=== PATIENT | female | born 1990 | race Caucasian/White ===

== ENCOUNTER 2017-06-15 12:07 | Emergency (ER) | payer SELFPAY ==
[2017-06-15 12:36] LABS: Bilirubin Negative (Negative); Blood, Urine Negative (Negative); Glucose, Urine (Dipstick) Negative (Negative); Ketone, Urine Negative (Negative); Nitrite Negative (Negative); Protein, Urine (Dipstick) Negative (Neg-Trace); Urobilinogen 0.2 mg/dL (0.2-1.0)
[2017-06-15 12:38] LABS: Bacteria/HPF 4+ HPF (None Seen); Hyaline Casts/LPF 0-3 HYALINE CAST LPF (0-3 Hyaline); RBC/HPF 0-3 HPF (0-3)
[2017-06-15 12:43] LABS: Hematocrit 32.7 % (36.0-47.0); Mean Platelet Volume 8.5 fL (7.4-10.4); Red Blood Cell (RBC) Count 4.51 mill/uL (4.20-5.40); White Blood Cell (WBC) Count 5.3 thou/uL (4.8-10.8)
[2017-06-15 12:57] LABS: ALT (SGPT) Less than 7 U/L (8-55); AST (SGOT) 18 U/L (5-34); Alkaline Phosphatase 84 U/L (40-150); Anion Gap 14 mmol/L (10-20); BUN (Urea Nitrogen) 10 mg/dL (7.0-18.7); Bilirubin, Total 0.2 mg/dL (0.2-1.2); Calc. Creatinine Clearance 0 mL/min (70-130); Calcium 9.1 mg/dL (7.8-10.44); Carbon Dioxide 23 mmol/L (22-29); Chloride 105 mmol/L (98-107); Estimated GFR-MDRD 89; Globulin 3.3 g/dL (2.4-3.5); Lipase 8 U/L (8-78); Protein, Total 7.5 g/dL (6.0-8.3)
[2017-06-15 13:04] LABS: Hypochromia SLIGHT = 6-15 cells (100X) (0-5/hpf)
[2017-06-15 13:16] LABS: Anisocytosis SLIGHT = 6-15 cells (100X) (0-5/hpf); Band 6 % (5-11); Microcytosis SLIGHT = 6-15 cells (100X) (0-5/hpf); Polychromasia SLIGHT = 2-3 cells (100X) (0-2/hpf); Reactive Lymphocytes 1 % (0-10)
[2017-06-15 13:17] LABS: Elliptocytes SLIGHT = 2-5 cells (100X) (0-1/hpf); Ovalocytes SLIGHT = 2-5 cells (100X) (0-1/hpf); Target Cells SLIGHT = 2-5 cells (100X) (0-1/hpf)
[2017-06-15] MEDS ORDERED: Ondansetron HCl/PF 4 MG/2 ML Vial ONE (13:41)
[2017-06-15] MEDS ORDERED: Morphine 4 MG/ML VIAL ONE (13:41)
[2017-06-15] MEDS ORDERED: HYDROmorphone 0.5 MG/0.5 ML SYRINGE ONE ×2 (13:55→16:20)
[2017-06-15] MEDS ORDERED: Promethazine HCl 12.5 MG SUPP ONE (15:02)
[2017-06-15] MEDS ORDERED: Promethazine HCl 25 MG/ML VIAL ONE (15:03)
--- NOTE | 2017-06-15 15:43 | ULT ---
PELVIC ULTRASOUND: Technique: Transabdominal and endovaginal ultrasound of the pelvis performed. History: Right pelvic pain. FINDINGS: There is history given by the technologist of partial oophorectomy. The uterus has a normal appearance. Uterus measures 7.5 x 3.8 x 4.2 cm. Endometrial stripe is within normal range measured at 4-6 mm. The ovaries are identified and appear unremarkable. There are follicles seen bilaterally. Color doppl er with spectral analysis demonstrates blood flow to both ovaries. IMPRESSION: Unremarkable pelvic ultrasound. POS: [facility]
[2017-06-15] MEDS ORDERED: Azithromycin 250 MG TAB ONE (16:20)
[2017-06-15] MEDS ORDERED: Doxycycline 100 MG CAP PO SCH (16:30)
== END 2017-06-15 16:55 | disposition home or self-care (01) ==
LOC: ERS 12:07
DX: N73.9 Female pelvic inflammatory disease, unspecified (principal); N83.209 Unspecified ovarian cyst, unspecified side; N39.0 Urinary tract infection, site not specified; F17.210 Nicotine dependence, cigarettes, uncomplicated
CPT/HCPCS: 76856; 80053; 81003; 81015; 81025; 83690; 84703; 85025; 87077; 87086; 87186; 87480; 87491; 87510; 87591; 87660; 96361; 96365; 96375; 96376; J0744; J1170; J2270; J2405; J2550

== ENCOUNTER 2017-06-17 17:50 | Emergency (ER) | payer SELFPAY ==
[2017-06-17 19:03] LABS: #Basophils 0.1 thou/uL (0.0-0.2); #Eosinphils 0.4 thou/uL (0.0-0.7); #Lymphocytes 2.3 thou/uL (1.20-3.40); #Monocytes 0.4 thou/uL (0.11-0.59); #Neutrophils 2.3 thou/uL (1.40-6.50); %Basophils 1.9 % (0.0-1.0); %Eosinophils 7.4 % (0.0-10.0); %Lymphocytes 41.7 % (21.0-51.0); %Monocytes 6.9 % (0.0-10.0); Hematocrit 31.7 % (36.0-47.0); Mean Platelet Volume 8.3 fL (7.4-10.4); Red Blood Cell (RBC) Count 4.41 mill/uL (4.20-5.40); White Blood Cell (WBC) Count 5.5 thou/uL (4.8-10.8)
[2017-06-17 19:27] LABS: ALT (SGPT) Less than 7 U/L (8-55); AST (SGOT) 17 U/L (5-34); Alkaline Phosphatase 89 U/L (40-150); Anion Gap 11 mmol/L (10-20); BUN (Urea Nitrogen) 12 mg/dL (7.0-18.7); Bilirubin, Total 0.2 mg/dL (0.2-1.2); Calc. Creatinine Clearance 0 mL/min (70-130); Calcium 9.2 mg/dL (7.8-10.44); Carbon Dioxide 25 mmol/L (22-29); Chloride 104 mmol/L (98-107); Estimated GFR-MDRD 82; Globulin 3.1 g/dL (2.4-3.5); Protein, Total 7.5 g/dL (6.0-8.3)
[2017-06-17 19:46] LABS: Bilirubin Negative (Negative); Blood, Urine Negative (Negative); Glucose, Urine (Dipstick) Negative (Negative); Ketone, Urine Negative (Negative); Nitrite Negative (Negative); Protein, Urine (Dipstick) Negative (Neg-Trace); Urobilinogen 0.2 mg/dL (0.2-1.0)
[2017-06-17 19:49] LABS: Hyaline Casts/LPF 0-3 HYALINE CAST LPF (0-3 Hyaline)
[2017-06-17 19:57] LABS: RBC/HPF 0-3 HPF (0-3); Yeast-All Forms 1+ HPF (None Seen)
[2017-06-17 19:58] LABS: Bacteria/HPF Rare-Few HPF (None Seen)
== END 2017-06-17 22:20 | disposition home or self-care (01) ==
LOC: ERS 17:50
DX: N76.0 Acute vaginitis (principal); B96.89 Other specified bacterial agents as the cause of diseases classified elsewhere; N30.90 Cystitis, unspecified without hematuria; F43.10 Post-traumatic stress disorder, unspecified; F17.210 Nicotine dependence, cigarettes, uncomplicated; Z79.899 Other long term (current) drug therapy
CPT/HCPCS: 36415; 80053; 81003; 81015; 85025; 99406

== ENCOUNTER 2017-07-19 20:53 | Emergency (ER) | payer OTHER, SELFPAY ==
[2017-07-19] MEDS ORDERED: diphenhydrAMINE 50 MG/ML VIAL ONE (21:59)
[2017-07-19] MEDS ORDERED: diphenhydrAMINE 25 MG CAP ONE (22:31)
== END 2017-07-19 22:41 | disposition home or self-care (01) ==
LOC: ERS 20:53
DX: R10.31 Right lower quadrant pain (principal); R51 Headache; F43.10 Post-traumatic stress disorder, unspecified; F17.210 Nicotine dependence, cigarettes, uncomplicated; Z79.899 Other long term (current) drug therapy; Z71.6 Tobacco abuse counseling
CPT/HCPCS: 96360; 99406; J1200

== ENCOUNTER 2017-07-21 13:00 | Observation (INO) | payer SELFPAY ==
[2017-07-21] MEDS ORDERED: Promethazine HCl 25 MG/ML VIAL ONE (15:14)
[2017-07-21] MEDS ORDERED: Dihydroergotamine Mesylate 1 MG/ML AMP SLOW IVP SCH ×2 (15:15→17:45)
[2017-07-21] MEDS ORDERED: Sodium Chloride 0.9% 1,000 ML IV SCH (17:03)
[2017-07-21] MEDS ORDERED: Bisacodyl 5 MG TAB PO PRN (17:03)
[2017-07-21] MEDS ORDERED: Lorazepam 2 MG/ML VIAL SLOW IVP PRN (17:03)
[2017-07-21] MEDS ORDERED: diphenhydrAMINE 50 MG/ML VIAL IVP PRN (17:03)
[2017-07-21] MEDS ORDERED: Promethazine HCl 25 MG/ML VIAL IM PRN (17:03)
--- NOTE | 2017-07-21 19:32 | HP ---
PRIMARY CARE PHYSICIAN: Dr. Matt. CHIEF COMPLAINT: Migraine. HISTORY OF PRESENT ILLNESS: This is a 27-year-old white female who has been seen multiple times over the last couple of months in the emergency room for abdominal pain requesting narcotic medications. She has not been prescribed any because she was found to have many different prescriptions prescribe d by multiple different providers over the last month prior to first coming here. The patient was se en 2 days ago for continued pain in her right lower quadrant, thought to be due to her chronic ovaria n cyst pain. She was denied narcotics at that time. She did state at that time that she felt a migr carmen coming on and that she needed a narcotic medication to prevent this from happening along with DH E. She was offered Benadryl, Reglan IV and she refuses medication and left. Patient returns today, reporting continued migraine headaches since the last 2 days along with persistent nausea and vomitin g of all fluids and food. She reports that the pain starts as a pressure pain behind her right eye, feels like someone is boring into her eye associated with spots in her vision prior to the onset of p ain and then the nausea and vomiting, no other symptoms. She has continued right lower quadrant pain in her abdomen. Patient reports that she has been prescribed Tylenol #3's by her outpatient physici an, but she has not been able to hold this down. In the emergency room, she was offered the headache protocol for treatment of migraine. She states she is allergic to REGLAN that it makes her go crazy and she also states that she is allergic to ZOFRAN, although she has been given that multiple times in the emergency room without visible side effects. Eventually, Dr. Martinez was consulted from the [facility] room, he did recommend giving 1 mg DHE which the patient had been requesting for her migraines and he then consulted her when she was put in the hospital. The patient at that point did refuse the DHE because it was not being given with Stadol. She did get 12.5 mg of Phenergan IM done in the [facility] room. Patient reports continuation of all of her symptoms and is demanding some stay or other pain medication to go with her DHE. PAST MEDICAL HISTORY: 1. Chronic migraines since she was 17. 2. Previous kidney stones. 3. Endometriosis. 4. Polycystic ovarian disease with chronic abdominal pain. PAST SURGICAL HISTORY: 1. Ovarian cyst removal x9. 2. Uterus rupture after vaginal delivery in 2012 that was repaired. 3. Appendectomy. 4. Cholecystectomy. 5. Lysis of adhesions. 6. Partial oophorectomy. 7. Reconstructive surgery of left ankle. PSYCHIATRIC HISTORY: Post-traumatic stress disorder. SOCIAL HISTORY: Patient smokes a half pack of cigarettes per day since age 13. Drinks socially rare ly. Denies drug use. FAMILY HISTORY: No pertinent family history. ALLERGIES: 1. KEFLEX. 2. KETOROLAC. 3. MORPHINE. 4. PENICILLIN. 5. SULFA ANTIBIOTICS. CURRENT MEDICATIONS: 1. Klonopin 1 mg 3 times a day as needed. 2. Ambien 5 mg at night. 3. Phenergan 12.5 mg as needed for nausea and vomiting. 4. Tylenol with Codeine 1 tablet every 4-6 hours as needed for pain. REVIEW OF SYSTEMS: Constitutional: No fevers or chills. She does get cold a lot. Eyes: She had s pots in her vision prior to her migraine now. No blurred vision or other vision changes, no eye pain . ENT: No congestion, drainage or sore throat. Cardiovascular: No chest pain, palpitations or rac ing heart. Pulmonary: No coughing, wheezing or shortness of breath. Abdomen: She has nausea and v omiting, bilious fluid, now no blood. She has a right lower quadrant abdominal pain that has not bee n moving or changing in character. No diarrhea or constipation. Genitourinary: No dysuria or hemat uria. Musculoskeletal: No muscle aches or joint pains. Skin: No rashes or lesions. Neurologic: No numbness, tingling or focal weakness. PHYSICAL EXAMINATION: GENERAL: This is a well-developed, well-nourished, white female in no apparent distress. EYES: Pupils are equal, round, and reactive to light. Extraocular movements are intact. Oropharynx clear without lesions, erythema or exudate. NECK: Supple, no lymphadenopathy, no thyroid nodules or enlargement, no JVD. HEART: Regular rate and rhythm, no murmurs, rubs or gallops. LUNGS: Clear to auscultation bilaterally, no wheezes, crackles or rhonchi. ABDOMEN: Soft, tender to palpation in right lower quadrant with minimal guarding, no rebound tendern ess, no masses, no hepatosplenomegaly, normoactive bowel sounds. EXTREMITIES: No clubbing, cyanosis or edema. SKIN: Without rashes or lesions noted. NEUROLOGIC: Cranial nerves intact and equal bilaterally without facial droop. Deep tendon reflexes 2+ in all extremities and strength is 5/5 in all extremities. LABORATORY DATA: No lab drawn this visit. ASSESSMENT: 1. Status migraine. The patient is reporting history of recurrent migraines, now with a migraine fo r the last 2 days, she has been refusing all medications that we offered to her. Dr. Martinez has been c onsulted for Neurology and recommended DHE. We will offer this along with Phenergan IM for her nause a and vomiting. We will also give patient some IV fluids and have her try and eat as able. 2. Drug-seeking behavior. Patient should not receive any narcotic pain medications in the future in the emergency room or in the hospital unless she has a visible acute medical emergency that requires it. We will treat her for her symptoms with nonnarcotic medications. 3. CODE STATUS: Patient is FULL CODE.
[2017-07-21] MEDS ORDERED: Famotidine/PF 20 mg/2ml Vial SLOW IVP SCH (21:00)
--- NOTE | 2017-07-21 21:00 | CON ---
DATE OF CONSULTATION: 07/21/2017 REFERRING PHYSICIAN: Dr. Kevin Sun. REASON FOR CONSULTATION: Intractable headache. HISTORY OF PRESENT ILLNESS: Ms. Tucker is a pleasant 27-year-old female who has been concer [facility] for evaluation of intractable headaches. She reports that she has a history of migraines since . She states that she usually takes Stadol nasal spray along with Phenergan to relieve her h eadache. If this does not improve, she tends to come to the hospital for acute treatment for migrain es. She notes that she has been having headache since Friday. This headache is located in the rig ht retroorbital region, it is nonradiating, it is dull in quality but exacerbate to sharp in quality, it is severe in intensity, it is causing her to have nausea, light sensitivity, noise sensitivity. She states that usually when she has been admitted to the hospital, she gets D.H.E. for 7 days along with Stadol and Dilaudid to help control her headaches. PAST MEDICAL HISTORY: Significant for chronic migraines, history of kidney stones, endometriosis, po lycystic ovarian disease with chronic abdominal pain. PAST SURGICAL HISTORY: Significant for ovarian cyst removal, uterus rupture after vaginal delivery, appendectomy, cholecystectomy, lysis of adhesions, partial oophorectomy, and reconstructive surgery o f her left ankle. PSYCHIATRIC HISTORY: Posttraumatic stress disorder. SOCIAL HISTORY: She smokes half pack of cigarettes per day. She drinks alcohol on occasions. She d enies any illicit drug use. FAMILY HISTORY: Noncontributory. CURRENT MEDICATIONS: Please review MAR. ALLERGIES: Include KEFLEX, KETOROLAC, MORPHINE, PENICILLIN AND SULFA DRUGS. REVIEW OF SYSTEMS: As mentioned in the HPI, otherwise negative. PHYSICAL EXAMINATION: Could not be performed as the patient refused. IMPRESSION: Intractable migraine. ASSESSMENT AND PLAN: Ms. Tucker is a 27-year-old female who presented with intractable head ache. I had a long discussion about different treatment of migraines. She was adamant that she be a dministered Stadol and Dilaudid for her headache. When I refused, she opted to participate in any of the counseling or physical exam and the interview process. She stated that if she is not being [place]in [place] for her symptoms, then she would rather go to a different hospital. I offered her that we can tr eat her with medications such as IV Depacon, D.H.E., steroids to help improve her headache; however, I do not give Stadol and Dilaudid as they are narcotic pain medications, which are not helpful for mi graine headaches. At this time, I have no further recommendations for this patient. Thank you for your consultation.
== END 2017-07-21 19:34 | disposition left against medical advice (07) ==
LOC: ERS 13:00 → 2SW 15:25
PROVIDERS: ADMIT Emergency Medicine; ATTEND Emergency Medicine
DX: G43.919 Migraine, unspecified, intractable, without status migrainosus (principal); E28.2 Polycystic ovarian syndrome; F17.210 Nicotine dependence, cigarettes, uncomplicated; F43.10 Post-traumatic stress disorder, unspecified; Z88.1 Allergy status to other antibiotic agents; Z88.5 Allergy status to narcotic agent; Z88.0 Allergy status to penicillin; Z88.2 Allergy status to sulfonamides; Z90.49 Acquired absence of other specified parts of digestive tract; Z90.721 Acquired absence of ovaries, unilateral; Z98.890 Other specified postprocedural states; Z87.442 Personal history of urinary calculi
CPT/HCPCS: 96361; 96372; 96374; G0378; J1110; J1200; J2060; J2550

== ENCOUNTER 2017-07-25 07:41 | Emergency (ER) | payer OTHER, SELFPAY | END 2017-07-25 08:16 | disposition left against medical advice (07) | LOC: ERS 07:41 | DX: R10.31 Right lower quadrant pain (principal); Z76.5 Malingerer [conscious simulation]; Z79.899 Other long term (current) drug therapy | CPT/HCPCS: 99284 ==

== ENCOUNTER 2017-09-05 21:56 | Emergency (ER) | payer OTHER ==
[2017-09-05 22:20] LABS: Bilirubin Negative (Negative); Blood, Urine Negative (Negative); Clarity Clear (Clear); Glucose, Urine (Dipstick) Negative (Negative); Leukocyte Trace (Negative); Nitrite Negative (Negative); Protein, Urine (Dipstick) Negative (Neg-Trace); Specific Gravity, Urine 1.015 (1.005-1.030); Urobilinogen 0.2 mg/dL (0.2-1.0)
[2017-09-05] MEDS ORDERED: Acetaminophen/Codeine 30-300mg Tablet ONE (22:24)
[2017-09-05 22:29] LABS: Bacteria/HPF 1+ HPF (None Seen); Hyaline Casts/LPF 0-3 HYALINE CAST LPF (0-3 Hyaline); RBC/HPF 0-3 HPF (0-3); Squamous Epithelial 0-3 HPF (0-3); WBC/HPF 0-3 HPF (0-3)
--- NOTE | 2017-09-05 22:43 | RAD ---
PA AND LATERAL VIEWS OF THE CHEST: 09/05/17 HISTORY: Fever, cough. FINDINGS: The cardiomediastinum is normal. The lungs are expanded and clear. The bony thorax is normal. IMPRESSION: Normal exam. POS: [facility]
== END 2017-09-05 22:58 | disposition home or self-care (01) ==
LOC: SCSER 21:56
DX: J40 Bronchitis, not specified as acute or chronic (principal); R10.9 Unspecified abdominal pain; F41.9 Anxiety disorder, unspecified; Z79.899 Other long term (current) drug therapy
CPT/HCPCS: 71046; 81003; 81015

== ENCOUNTER 2017-09-08 11:30 | Emergency (ER) | payer OTHER | END 2017-09-08 13:14 | disposition home or self-care (01) | LOC: SCSER 11:30 | DX: J06.9 Acute upper respiratory infection, unspecified (principal); R10.9 Unspecified abdominal pain; G89.29 Other chronic pain; E28.2 Polycystic ovarian syndrome; F41.9 Anxiety disorder, unspecified | CPT/HCPCS: 99283 ==

== ENCOUNTER 2017-09-12 01:01 | Emergency (ER) | payer OTHER ==
[2017-09-12] MEDS ORDERED: Promethazine 25 MG TAB ONE (02:13)
== END 2017-09-12 02:19 | disposition home or self-care (01) ==
LOC: SCSER 01:01
DX: G89.29 Other chronic pain (principal); R10.2 Pelvic and perineal pain; J40 Bronchitis, not specified as acute or chronic; F41.9 Anxiety disorder, unspecified; F17.210 Nicotine dependence, cigarettes, uncomplicated; Z71.6 Tobacco abuse counseling; Z79.899 Other long term (current) drug therapy
CPT/HCPCS: 99406

== ENCOUNTER 2017-10-28 19:18 | Emergency (ER) | payer OTHER ==
[~2017-10-28 19:18] MED LIST: ISOVUE-370 76%-LOCM 1 ML ONE
[2017-10-28] MEDS ORDERED: Adenosine 6 MG/2 ML VIAL ONE (20:01)
[2017-10-28 20:08] LABS: #Basophils 0.1 thou/uL (0.0-0.2); #Eosinphils 0.5 thou/uL (0.0-0.7); #Lymphocytes 2.3 thou/uL (1.20-3.40); #Monocytes 0.5 thou/uL (0.11-0.59); #Neutrophils 3.9 thou/uL (1.40-6.50); %Eosinophils 7.1 % (0.0-10.0); %Lymphocytes 31.5 % (21.0-51.0); %Monocytes 7.2 % (0.0-10.0); %Neutrophils 53.1 % (42.0-75.0); Hemoglobin 9.6 g/dL (12.0-16.0); Mean Corpuscular HGB CONC 32.3 g/dL (32.0-36.0); Mean Corpuscular Hemoglobin 24.5 pg (27.0-31.0); Mean Corpuscular Volume 75.8 fl (81.0-99.0); Mean Platelet Volume 7.7 fL (7.4-10.4); Platelet Count 346 thou/uL (130-400); RBC Distribution Width 19.2 % (11.5-14.5); Red Blood Cell (RBC) Count 3.91 mill/uL (4.20-5.40); White Blood Cell (WBC) Count 7.3 thou/uL (4.8-10.8)
[2017-10-28 20:33] LABS: Anion Gap 12 mmol/L (10-20); BUN (Urea Nitrogen) 13 mg/dL (7.0-18.7); Calc. Creatinine Clearance 0 mL/min (70-130); Calcium 9.2 mg/dL (7.8-10.44); Carbon Dioxide 24 mmol/L (22-29); Chloride 105 mmol/L (98-107); Estimated GFR-MDRD Greater than 90; Glucose 93 mg/dL (70-105); Potassium 3.5 mmol/L (3.5-5.1); Sodium 137 mmol/L (136-145)
[2017-10-28] MEDS ORDERED: HYDROmorphone 0.5 MG/0.5 ML SYRINGE SLOW IVP SCH (20:45)
--- NOTE | 2017-10-28 20:48 | CT ---
CT OF ABDOMEN AND PELVIS 10/28/17 COMPARISON: 10/03/17 and 03/03/17. HISTORY: Lower abdominal pain and vaginal bleeding. History of laparoscopic hysterectomy one week ago. TECHNIQUE: Serial axial CT imaging at 5 mm intervals from lung bases through pubic symphysis with IV contrast. C oronal reformatted imaging obtained. FINDINGS: The imaged lung bases appear grossly unremarkable. No free intraperitoneal air. Cholecystectomy clips are present. The liver, spleen, pancreas, adrenal glands, and kidneys are grossly unremarkable. Limited assessment of the bowel without oral contrast media demonstrates no evidence for inflammatory change or obstruction. The vascular structures of the abdomen and pelvis appear patent. There is no lymphadenopathy noted wi thin the abdomen/pelvis. No acute osseous abnormality is seen. IMPRESSION: No acute findings. POS: [facility]
[2017-10-28 20:50] LABS: Bilirubin Negative (Negative); Blood, Urine Moderate (Negative); Clarity CLEAR (Clear); Glucose, Urine (Dipstick) Negative (Negative); Leukocyte Trace (Negative); Nitrite Negative (Negative); Protein, Urine (Dipstick) Negative (Neg-Trace); Specific Gravity, Urine 1.011 (1.002-1.036); Urobilinogen 0.2 mg/dL (0.2-1.0)
[2017-10-28 20:52] LABS: Bacteria/HPF Rare-Few HPF (None Seen); Hyaline Casts/LPF 0-3 HYALINE CAST LPF (0-3 Hyaline); RBC/HPF 0-3 HPF (0-3); Squamous Epithelial 0-3 HPF (0-3)
[2017-10-28] MEDS ORDERED: HYDROmorphone 0.5 MG/0.5 ML SYRINGE ONE (20:59)
[2017-10-28] MEDS ORDERED: Promethazine HCl 25 MG/ML VIAL ONE (21:56)
== END 2017-10-28 22:42 | disposition left against medical advice (07) ==
LOC: ERS 19:18
DX: N93.9 Abnormal uterine and vaginal bleeding, unspecified (principal); G89.18 Other acute postprocedural pain; Z76.5 Malingerer [conscious simulation]; F41.9 Anxiety disorder, unspecified; F17.210 Nicotine dependence, cigarettes, uncomplicated
CPT/HCPCS: 36415; 74177; 80048; 81003; 81015; 85025; 96360; J0153; J1170; J2550